=== PATIENT | male | born 1980 | race Caucasian/White ===

== ENCOUNTER 2020-12-19 13:22 | Outpatient (CLI) | payer BC | END 2020-12-19 13:23 | disposition home or self-care (01) | LOC: CSHCT 13:22 | PROVIDERS: ATTEND Nurse Practitioner Family | DX: R10.30 Lower abdominal pain, unspecified (principal); N28.1 Cyst of kidney, acquired; K76.9 Liver disease, unspecified; R91.8 Other nonspecific abnormal finding of lung field | CPT/HCPCS: 74177 ==

== ENCOUNTER 2020-12-23 07:38 | Outpatient (CLI) | payer BC | END 2020-12-23 07:39 | disposition home or self-care (01) | LOC: CSHCT 07:38 | PROVIDERS: ATTEND Nurse Practitioner Family | DX: R16.0 Hepatomegaly, not elsewhere classified (principal); K76.9 Liver disease, unspecified; N28.9 Disorder of kidney and ureter, unspecified; R91.8 Other nonspecific abnormal finding of lung field | CPT/HCPCS: 74170 ==